=== PATIENT | male | born 2000 ===

== ENCOUNTER 2024-07-12 22:03 | Emergency (ER) | payer SELFPAY ==
[2024-07-12 22:04] VITALS: BMI 26.6
[2024-07-12 22:39] VITALS: BP 151/90; PULSE 73; RESP 18; TEMP 36.8; O2SAT 98
--- NOTE | 2024-07-12 23:20 | PD.EDWOUND ---
ED Wound/Laceration-RME/HPI General Chief Complaint: Wound/Laceration Stated Complaint: LEFT 2ND DIGIT LAC Time Seen by Provider: 07/12/24 22:39 Arrival date/time: 07/12/24 22:03 23M with no significant PMH presents to ED with L index finger lac after he accidentally cut himself with a knife. Patient is UTD on tdap. Limitations: no limitations Related Data Allergies Allergy/AdvReac Type Severity Reaction Status Date / Time No Known Allergies Allergy Verified 07/12/24 22:04 Review of Systems Review of Systems Systems Reviewed: All systems reviewed, normal except as documented Constitutional Constitutional: Reports system reviewed and no additional complaints, except as documented, Denies fever(s) and Denies headache(s) ENT Ears, Nose, Mouth, and Throat: Denies disequilibrium and Denies headache(s) Cardiovascular Cardiovascular: Reports system reviewed and no additional complaints, except as documented, Denies chest pain and Denies dyspnea Respiratory Respiratory: Reports system reviewed and no additional complaints, except as documented, Denies cough and Denies dyspnea Gastrointestinal Gastrointestinal: Reports system reviewed and no additional complaints, except as documented, Denies abdominal pain, Denies nausea and Denies vomiting Integumentary/Breasts Skin/Breast: Reports as per HPI and Reports skin pain Neurologic Neurologic: Reports system reviewed and no additional complaints, except as documented, Denies confusion, Denies disequilibrium and Denies headache(s) Psychiatric Psychiatric: Denies confusion Past Medical History Social History SMOKING STATUS: Never smoker ED Exam General Limitations: Present no limitations General appearance: Present alert and in no apparent distress Head Head exam: Present atraumatic Eye Eye exam: Present normal appearance, PERRL and EOMI ENT ENT exam: Present normal exam, normal oropharynx and mucous membranes moist Neck Neck exam: Present normal inspection, full ROM and trachea midline Chest Chest inspection: Present normal inspection and symmetric chest wall rise Respiratory Respiratory exam: Present normal lung sounds bilaterally Cardiovascular Cardiovascular exam: Present regular rate, normal rhythm and normal heart sounds Abdominal Exam Abdominal exam: Present soft and normal bowel sounds Extremities Exam Extremities exam: Present full ROM Expanded Upper Extremity Exam Hand exam: Present full ROM and laceration (1 cm lac L tip of index finger (palmar side)) Back Exam Back exam: Present normal inspection and full ROM Neurological Exam Neurological exam: Present alert, oriented X3 and CN II-XII intact Psychiatric Psychiatric exam: Present normal affect and normal mood Skin Skin exam: Present warm, dry, intact and normal color Course Quality Measures none Orders Category Date Time Status Set Up Suture Tray STAT Care 07/12/24 22:40 Active Wound Care NOW Care 07/12/24 22:40 Active Vital Signs Vital signs: Vital Signs Temperature 98.3 F 07/12/24 22:39 Pulse Rate 73 07/12/24 22:39 Respiratory Rate 18 07/12/24 22:39 Blood Pressure 151/90 H 07/12/24 22:39 Pulse Oximetry (%) 98 07/12/24 22:39 Oxygen Delivery Method Room Air 07/12/24 22:39 O2 at 98% on RA and WNLs Wound / Laceration MDM Narrative MDM Narrative:: 23M with no significant PMH presents to ED with L index finger lac after he accidentally cut himself with a knife. Patient is UTD on tdap. Physical exam reveals 1 cm lac on tip of L index finger (palmar side). ROM intact. Patient is afebrile, calm, and alert. Wound cleaned/irrigated and closed with 2 stitches. Given guidance counselor to have them removed in about 10-14 days. Patient data External records reviewed:: None Clinical information provided by:: patient Social determinants that could affect healthcare access:: none Patient has the following chronic illnesses:: none How is presenting disease/condition affected by chronic disease/condition?: no chronic disease Evaluation data The following diagnostics were reviewed and interpreted by me:: other (specify) (none) Lab and/or radiology exams considered but not ordered:: not ordered Interpretation Summary: n/a Medications / Prescriptions Medications or Prescriptions considered but not ordered:: not ordered Medication administrations:: n/a Consultations Consultation(s) initiated? (list below): No Diagnosis Wound Differential Diagnosis: laceration, abrasion and avulsion of skin Most likely diagnosis given after review of the tests above:: laceration Admission Indicated Admission indicated?: not indicated Admission Request Was there a request for admission?: No Disposition Plan Disposition Plan: Discharge Discharge Attestation Discharge Attestation: The patient and all family members were given an opportunity to ask questions and understood the discharge instructions. Discharge instructions specifically effects, indications for sooner follow up or return to the emergency department, and the expected course of current diagnosis. Patient condition: Stable Discharge Plan Plan Patient Disposition: HOME (Self Care) Disposition Comment: Stable Problem List Clinical Impression: Laceration Patient/Caregiver Discharge Instructions Education Materials: ED Laceration Hand with ... Additional Instructions: Please follow-up with PCP within 24-48 hours and return immediately if symptoms worsen. Have stitches removed in about 14 days. Print Language: Lithuanian Stand Alone Forms: Patient Portal Info Letter LARA/JAMEL Supervising Physician LARA/JAMEL Supervising Physician: Dr. Aldana
== END 2024-07-12 23:22 | disposition home or self-care (01) ==
PROVIDERS: Emergency Provider Emergency Medicine
DX: S61.211A Laceration without foreign body of left index finger without damage to nail, initial encounter (principal); W26.0XXA Contact with knife, initial encounter
CPT/HCPCS: 12001; 99283